=== PATIENT | male | born 1930 | race Caucasian/White ===

== ENCOUNTER 2017-04-28 08:05 | Inpatient (IN) | payer MEDICARE, BC, MEDICAID ==
[2017-04-28 08:37] VITALS: BP 122/86
--- NOTE | 2017-04-28 19:00 | Psychosocial Evaluation ---
DATE OF SERVICE: 04/28/2017 IDENTIFYING INFORMATION: The patient is 86 years old male. CHIEF COMPLAINT: No answer. HISTORY OF PRESENT ILLNESS: The patient was admitted on hold for danger to others. Apparently, the patient had thought that his was trying to harm him. He became paranoid. He was delusional. He has Parkinson's disease and seems he is demented. The patient himself was unable to tell me his age, he believes his son who is 57 when in reality after talking to the , she said he is 68. The patient has not been working. No substance abuse. He usually sleeps well, eats well. This is his first psychiatric hospitalization. PAST PSYCHIATRIC HISTORY: The patient has no prior psychiatric treatment, never tried to harm himself or anybody. MEDICAL HISTORY: Parkinson's was diagnosed 5 years ago. MEDICATIONS: He is on Sinemet. He has never been tried on any medication for Alzheimer. FAMILY AND SOCIAL HISTORY: The patient is . He has one son. 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 There is no family history of psychiatric disorder, his is 67 years of age. No history of abuse available. MENTAL STATUS EXAMINATION: The patient was appropriately dressed, not well groomed. He was alert. He did not tell me the date. He knew he was at [facility]. He was not a great historian. He was unable to tell me the date, though he was able to tell me his age. He was delusional. He believes his was cheating on him. His short-term memory is poor. He is not sure why he was there. His long-term term memory is poor. He can tell me his age or the age of his son. He denies any auditory or visual hallucination. He is not sure why he is here. He was apparently delusional about his . His insight and judgment is impaired. IMPRESSION: AXIS I: Psychosis, not otherwise specified, dementia. MEDICAL DIAGNOSES: Parkinson and hypertension. His assets, he is accepting treatment. Negative poor coping skills. INITIAL TREATMENT PLAN: We will be observing the patient. We will continue with his medication for Parkinson's. We will do group therapy, milieu therapy, individual therapy. ESTIMATED LENGTH OF STAY: 2-7 days. DISCHARGE CRITERIA: Decreasing psychosis, agitation, no longer threatening or delusional. After discharge, outpatient treatment. [facility]# [id number]
[2017-04-28] MEDS: Lactulose 10 Gm/15 mL 30mL UDC PO SCH (20:46)
[2017-04-29] MEDS: POLYETHYLENE GLYCOL 3350 17 GM PACK PO SCH (08:48)
[2017-04-29] MEDS ORDERED: Lactulose 10 Gm/15 mL 30mL UDC PO SCH (09:00)
[2017-04-29] MEDS: Lactulose 10 Gm/15 mL 30mL UDC PO SCH (20:52)
--- NOTE | 2017-04-29 21:10 | Progress Notes ---
DATE: 04/29/2017 Case was discussed with staff of the patient, reviewed records. The patient is confused. He tells me that he had an argument with his before he came here. He reports that apparently the family to collect the guns. I instructed Lizzie, the charge nurse, to make sure to call the family and tell them to get rid of the guns. The patient reported that he has got hold of it. The patient was admitted on a hold. The patient was afraid that his is going to shoot him. He locked himself ____ pulling a whistle to threatening to kill his . I am not sure of the police. The patient originally was brought by police. He believes that this is the 04/29/2017 and is unable to tell me the year. His current medications include Sinemet one tablet 4 times a day and he is on lactulose 10 grams daily, lactulose 10 grams at bedtime and Ativan 1 mg every 6 hours as needed and polyethylene glycol 17 grams daily. He is not smoking and he does not know if he got the flu vaccine this year or not and I did talk to his yesterday. She gave me detailed information about him. His is supposed to be making decisions for this patient and I will be initiating Exelon for this patient, Exelon patch to help with his dementia. I will start by Exelon 4.6 mg to be applied daily and will continue outpatient group therapy, milieu therapy, adjust medication as needed. JOB# [id number]
--- NOTE | 2017-04-29 21:21 | History & Physical ---
ADMIT DATE: 04/28/2017 HISTORY OF PRESENT ILLNESS: The patient is an 86-year-old male with long history of Parkinson's disease, hypertension, degenerative joint disease and dementia, admitted to [facility] under Dr. Jon's service. The patient denies any chest pain, shortness of breath, nausea, vomiting, fever, or chills. PAST MEDICAL HISTORY: Significant for hypertension, degenerative joint disease, Parkinson disease, and dementia. PAST SURGICAL HISTORY: No recent surgery. ALLERGIES: None. MEDICATIONS: Follow admission reconciliation. SOCIAL HISTORY: No smoking, alcohol, or drugs. FAMILY HISTORY: Noncontributory. REVIEW OF SYSTEMS: RENAL SYSTEM: No history of chronic renal disorder. CARDIOVASCULAR SYSTEM: He has history of hypertension. ENDOCRINE SYSTEM: No diabetes or thyroid problem. GASTROINTESTINAL SYSTEM: No upper or lower GI bleed. NEUROLOGICAL SYSTEM: He has history of Parkinson disease. GENITOURINARY SYSTEM: No dysuria or hematuria. PHYSICAL EXAMINATION: GENERAL: He is awake, alert, mildly confused. VITAL SIGNS: Temperature 98.9, heart rate is 69, and blood pressure 119/68. HEENT: Normocephalic. Pupils are reactive to light and accommodation. Sclerae are clear. NECK: Supple. Negative for lymphadenopathy, JVD, or bruit. CHEST: Air bilateral normal. No rhonchi or wheezing. HEART: S1 and S2 normal. No murmur or gallop rhythm. ABDOMEN: Soft. Bowel sounds positive. EXTREMITIES: No edema. NEUROLOGIC: Awake, alert, mildly confused. No focal motor or sensory deficits. Cranial nerves 2-12 are intact. ASSESSMENT: 1. Hypertension. 2. Parkinson's disease. 3. Degenerative joint disease. 4. Dementia. PLAN: The patient is admitted to the hospital under Dr. Jon's service. MEDICAL PROBLEMS ADDRESSED DURING HOSPITALIZATION: Dementia. MEDICAL PROBLEMS ADDRESSED AT DISCHARGE: Hypertension, degenerative joint disease. CBC and CMP for tomorrow. Aspirin 81 mg a day, metoprolol 25 twice a day. The patient is cleared for activity. Thank you, Dr. Jon, for asking me to see your patient. JOB# [id number]
[2017-04-30] MEDS: POLYETHYLENE GLYCOL 3350 17 GM PACK PO SCH (08:16)
[2017-04-30] MEDS: Aspirin 81mg Chewable Tab PO SCH (08:18)
[2017-04-30 08:51] LABS: % BASOPHILS 0.5 % (0.0-2.0); % EOSINOPHILS 1.4 % (0.0-5.0); % LYMPHOCYTES 33.6 % (20.0-50.0); % MONOCYTES 6.3 % (2.0-10.0); % NEUTROPHILS 58.2 % (40.0-80.0); EOSINOPHILE ABSOLUTE 0.1 Th/cmm (0.1-0.4); HEMATOCRIT 44.7 % (41.0-60); HEMOGLOBIN 15.2 gm/dL (12-16); LYMPHOCYTE ABSOLUTE 1.7 Th/cmm (1.5-3.0); MEAN CELL VOLUME 94.7 fl (80-99); MEAN CORPUSCULAR HEMOGLOBIN 32.1 pg (27.0-31.0); MEAN CORPUSCULAR HGB CONC 33.9 pg (28.0-36.0); MEAN PLATELET VOLUME 7.2 fl; MONOCYTE ABSOLUTE 0.3 Th/cmm (0.3-1.0); PLATELET COUNT 230 Th/cmm (150-400); RED BLOOD COUNT 4.72 Mil/cmm (3.80-5.80); WHITE BLOOD COUNT 5.1 Th/cmm (4.8-10.8)
[2017-04-30] MEDS ORDERED: Rivastigmine 4.6 mg/24 hr Tdm TD SCH (09:00)
[2017-04-30 09:11] LABS: ALB/GLOB RATIO 1.5 (1.0-1.8); ALBUMIN 4.3 gm/dL (4.2-5.5); ALKALINE PHOSPHATASE 39 U/L (34-104); ANION GAP 8.8 (7.0-16.0); BILIRUBIN,TOTAL 0.6 mg/dL (0.3-1.0); BUN - UREA NITROGEN 19 mg/dL (7-25); CALCIUM SERUM 9.5 mg/dL (8.6-10.3); CARBON DIOXIDE 25.3 mEq/L (21.0-31.0); CHLORIDE 104 mEq/L (98-107); CREATININE - SERUM 0.9 mg/dL (0.7-1.3); GLUCOSE 108 mg/dL (70-105); POTASSIUM SERUM 4.1 mEq/L (3.5-5.1); SGOT 22 U/L (13-39); SGPT/ALT 7 U/L (7-52); SODIUM SERUM 134 mEq/L (136-145); TOTAL PROTEIN,SERUM 7.2 gm/dL (6.0-8.3)
--- NOTE | 2017-04-30 13:06 | Internal Medicine Prog Note ---
Internal Medicine Subjective - Subjective Service Date: 04/30/17 Patient seen and examined:: with staff Patient is:: awake, verbal, in bed, confused Per staff patient has:: no adverse event Internal Medicine Objective - Results Result Diagrams: 04/30/17 08:35 04/30/17 08:35 Recent Labs: Laboratory Last Values WBC 5.1 Th/cmm (4.8-10.8) 04/30/17 08:35 RBC 4.72 Mil/cmm (3.80-5.80) 04/30/17 08:35 Hgb 15.2 gm/dL (12-16) 04/30/17 08:35 Hct 44.7 % (41.0-60) 04/30/17 08:35 MCV 94.7 fl (80-99) 04/30/17 08:35 MCH 32.1 pg (27.0-31.0) H 04/30/17 08:35 MCHC Differential 33.9 pg (28.0-36.0) 04/30/17 08:35 RDW 13.0 % (11.5-20.0) 04/30/17 08:35 Plt Count 230 Th/cmm (150-400) 04/30/17 08:35 MPV 7.2 fl 04/30/17 08:35 Neutrophils % 58.2 % (40.0-80.0) 04/30/17 08:35 Lymphocytes % 33.6 % (20.0-50.0) 04/30/17 08:35 Monocytes % 6.3 % (2.0-10.0) 04/30/17 08:35 Eosinophils % 1.4 % (0.0-5.0) 04/30/17 08:35 Basophils % 0.5 % (0.0-2.0) 04/30/17 08:35 Sodium 134 mEq/L (136-145) L 04/30/17 08:35 Potassium 4.1 mEq/L (3.5-5.1) 04/30/17 08:35 Chloride 104 mEq/L (98-107) 04/30/17 08:35 Carbon Dioxide 25.3 mEq/L (21.0-31.0) 04/30/17 08:35 Anion Gap 8.8 (7.0-16.0) 04/30/17 08:35 BUN 19 mg/dL (7-25) 04/30/17 08:35 Creatinine 0.9 mg/dL (0.7-1.3) 04/30/17 08:35 Est GFR ( Amer) TNP 04/30/17 08:35 Est GFR (Non-Af Amer) TNP 04/30/17 08:35 BUN/Creatinine Ratio 21.1 04/30/17 08:35 Glucose 108 mg/dL (70-105) H 04/30/17 08:35 Calcium 9.5 mg/dL (8.6-10.3) 04/30/17 08:35 Total Bilirubin 0.6 mg/dL (0.3-1.0) 04/30/17 08:35 AST 22 U/L (13-39) 04/30/17 08:35 ALT 7 U/L (7-52) 04/30/17 08:35 Alkaline Phosphatase 39 U/L (34-104) 04/30/17 08:35 Total Protein 7.2 gm/dL (6.0-8.3) 04/30/17 08:35 Albumin 4.3 gm/dL (4.2-5.5) 04/30/17 08:35 Globulin 2.9 gm/dL 04/30/17 08:35 Albumin/Globulin Ratio 1.5 (1.0-1.8) 04/30/17 08:35 - Physical Exam Vitals and I&O: Vital Signs Temp 98.0 F 04/29/17 20:00 Pulse 70 04/30/17 08:18 Resp 20 04/29/17 20:00 BP 161/82 04/30/17 08:18 Pulse Ox 100 04/29/17 20:00 Intake & Output 04/29/17 04/30/17 04/30/17 18:59 06:59 18:59 Intake Total 60 Balance 60 Intake: Oral 60 Other: # Voids 1 Stool Characteristics Formed Formed Soft Active Medications: Current Medications Acetaminophen (Tylenol) 650 mg PO Q4H PRN PRN Reason: Mild Pain/Headache/T above 101 Stop: 06/27/17 08:47 Aspirin (Aspirin Chewable) 81 mg PO DAILY [facility] Stop: 06/29/17 08:59 Last Admin: 04/30/17 08:18 Dose: 81 mg Carbidopa/Levodopa (Sinemet 25mg-100 Mg) 1 tab PO QID [facility] Stop: 06/27/17 12:59 Last Admin: 04/30/17 12:39 Dose: 1 tab Lactulose (Cephulac) 10 gm PO HS [facility] Stop: 06/27/17 20:59 Last Admin: 04/29/17 20:52 Dose: 10 gm Lorazepam (Ativan) 1 mg PO Q6H PRN; Protocol PRN Reason: Agitation Stop: 06/27/17 08:47 Metoprolol Tartrate (Lopressor) 25 mg PO BID [facility] Stop: 06/29/17 08:59 Last Admin: 04/30/17 08:18 Dose: 25 mg Polyethylene Glycol (Miralax) 17 gm PO DAILY [facility] Stop: 06/28/17 08:59 Last Admin: 04/30/17 08:16 Dose: Not Given Rivastigmine Tartrate (Exelon) 1.5 mg PO BIDWM [facility] Stop: 06/28/17 17:59 Last Admin: 04/30/17 08:18 Dose: 1.5 mg General: demented Internal Medicine Assmt/Plan - Assessment Assessment: 1.PARKINSONS DISEASE. 2.DJD. 3.HTN. 4.DEMENTIA. - Plan Plan: CONTINUE ON CURRENT MEDICATION AND DIET
[2017-04-30] MEDS: Lactulose 10 Gm/15 mL 30mL UDC PO SCH (21:15)
--- NOTE | 2017-04-30 23:45 | Progress Notes ---
DATE: 04/30/2017 Case was discussed with staff of the patient and reviewed records. The patient has a CBC with high MCH at 32.1. His chemistry panel showed low sodium at 134 with high blood sugar of 108, the rest is within normal range. I initiated Exelon on him 1.5 mg twice a day. I talked to his yesterday and today and I asked her about the guns that they own and she said they were all taken by the police and she said the one they found meaning that there may be some that they could not find and I discussed with her the importance of making sure that she search her house before the patient show up there to be sure just in case. She said she has arranged for 24-hour caregivers for the patient when he is ready. The patient continues to be confused, unpredictable, impulsive, and paranoid. I did add Exelon for him. No side effects. No nausea. I will continue outpatient group therapy, milieu therapy, adjust the medication as needed. I would like to add MRSA was negative. JOB# [id number]
[2017-05-01] MEDS: POLYETHYLENE GLYCOL 3350 17 GM PACK PO SCH (08:23)
[2017-05-01] MEDS: Aspirin 81mg Chewable Tab PO SCH (08:31)
--- NOTE | 2017-05-01 16:03 | General Progress Note ---
Subjective - Review of Systems Service Date: 05/01/17 Subjective: awake and ambulatory confused no distress Objective - Results Result Diagrams: 04/30/17 08:35 04/30/17 08:35 Recent Labs: Laboratory Last Values WBC 5.1 Th/cmm (4.8-10.8) 04/30/17 08:35 RBC 4.72 Mil/cmm (3.80-5.80) 04/30/17 08:35 Hgb 15.2 gm/dL (12-16) 04/30/17 08:35 Hct 44.7 % (41.0-60) 04/30/17 08:35 MCV 94.7 fl (80-99) 04/30/17 08:35 MCH 32.1 pg (27.0-31.0) H 04/30/17 08:35 MCHC Differential 33.9 pg (28.0-36.0) 04/30/17 08:35 RDW 13.0 % (11.5-20.0) 04/30/17 08:35 Plt Count 230 Th/cmm (150-400) 04/30/17 08:35 MPV 7.2 fl 04/30/17 08:35 Neutrophils % 58.2 % (40.0-80.0) 04/30/17 08:35 Lymphocytes % 33.6 % (20.0-50.0) 04/30/17 08:35 Monocytes % 6.3 % (2.0-10.0) 04/30/17 08:35 Eosinophils % 1.4 % (0.0-5.0) 04/30/17 08:35 Basophils % 0.5 % (0.0-2.0) 04/30/17 08:35 Sodium 134 mEq/L (136-145) L 04/30/17 08:35 Potassium 4.1 mEq/L (3.5-5.1) 04/30/17 08:35 Chloride 104 mEq/L (98-107) 04/30/17 08:35 Carbon Dioxide 25.3 mEq/L (21.0-31.0) 04/30/17 08:35 Anion Gap 8.8 (7.0-16.0) 04/30/17 08:35 BUN 19 mg/dL (7-25) 04/30/17 08:35 Creatinine 0.9 mg/dL (0.7-1.3) 04/30/17 08:35 Est GFR ( Amer) TNP 04/30/17 08:35 Est GFR (Non-Af Amer) TNP 04/30/17 08:35 BUN/Creatinine Ratio 21.1 04/30/17 08:35 Glucose 108 mg/dL (70-105) H 04/30/17 08:35 Calcium 9.5 mg/dL (8.6-10.3) 04/30/17 08:35 Total Bilirubin 0.6 mg/dL (0.3-1.0) 04/30/17 08:35 AST 22 U/L (13-39) 04/30/17 08:35 ALT 7 U/L (7-52) 04/30/17 08:35 Alkaline Phosphatase 39 U/L (34-104) 04/30/17 08:35 Total Protein 7.2 gm/dL (6.0-8.3) 04/30/17 08:35 Albumin 4.3 gm/dL (4.2-5.5) 04/30/17 08:35 Globulin 2.9 gm/dL 04/30/17 08:35 Albumin/Globulin Ratio 1.5 (1.0-1.8) 04/30/17 08:35 - Physical Exam Vitals and I&O: Vital Signs Temp 96.6 F 04/30/17 08:00 Pulse 60 05/01/17 08:28 Resp 20 04/30/17 08:00 BP 104/63 05/01/17 08:28 Pulse Ox 94 04/30/17 08:00 Intake & Output 04/30/17 05/01/17 05/01/17 18:59 06:59 18:59 Intake Total 1000 Output Total 2 Balance 998 Intake: Oral 1000 Output: Urine 2 Other: # Bowel Movements 1 Stool Characteristics Soft Soft Soft Active Medications: Current Medications Acetaminophen (Tylenol) 650 mg PO Q4H PRN PRN Reason: Mild Pain/Headache/T above 101 Stop: 06/27/17 08:47 Aspirin (Aspirin Chewable) 81 mg PO DAILY [facility] Stop: 06/29/17 08:59 Last Admin: 05/01/17 08:31 Dose: 81 mg Carbidopa/Levodopa (Sinemet 25mg-100 Mg) 1 tab PO QID [facility] Stop: 06/27/17 12:59 Last Admin: 05/01/17 12:13 Dose: 1 tab Lactulose (Cephulac) 10 gm PO HS [facility] Stop: 06/27/17 20:59 Last Admin: 04/30/17 21:15 Dose: 10 gm Lorazepam (Ativan) 1 mg PO Q6H PRN; Protocol PRN Reason: Agitation Stop: 06/27/17 08:47 Metoprolol Tartrate (Lopressor) 25 mg PO BID [facility] Stop: 06/29/17 08:59 Last Admin: 05/01/17 08:28 Dose: Not Given Polyethylene Glycol (Miralax) 17 gm PO DAILY [facility] Stop: 06/28/17 08:59 Last Admin: 05/01/17 08:23 Dose: Not Given Rivastigmine Tartrate (Exelon) 1.5 mg PO BIDWM [facility] Stop: 06/28/17 17:59 Last Admin: 05/01/17 08:31 Dose: 1.5 mg General: No acute distress HEENT: Atraumatic, PERRLA Neck: Supple, JVD Cardiovascular: Regular rate, Normal S1, Normal S2 Lungs: Clear to auscultation Abdomen: Bowel sounds, Soft Extremities: Other (scattered ecchymosis in arms) Assessment/Plan - Assessment Assessment: 1.PARKINSONS DISEASE. 2.DJD. 3.HTN. 4.DEMENTIA - Plan Plan: cont current treatment
--- NOTE | 2017-05-01 20:17 | Progress Notes ---
DATE: 05/01/2017 Case was discussed with staff of the patient, reviewed records. The patient was confused last night. He continues to be unpredictable and impulsive. His family is very supportive and they are here almost every day. He was wondering last night about, if where he is and where is his , but today he seems to be doing better on that. He has been compliant with the medication with no side effects, no sedation, no nausea and I am avoiding giving him any antipsychotic with his Parkinson symptoms and he is sleeping well, he is eating better. His and son were at bedside, very supportive, discussed plan of care and 24-hour caregivers as they are going to be coming to see him and we will continue to work with the patient in group therapy, milieu therapy and adjust medication as needed. JOB# [id number]
[2017-05-01] MEDS: Lactulose 10 Gm/15 mL 30mL UDC PO SCH (21:12)
[2017-05-02] MEDS: Aspirin 81mg Chewable Tab PO SCH (09:10)
[2017-05-02] MEDS: POLYETHYLENE GLYCOL 3350 17 GM PACK PO SCH (09:11)
--- NOTE | 2017-05-02 14:16 | General Progress Note ---
Subjective - Review of Systems Service Date: 05/02/17 Subjective: awake and ambulatory confused no distress Objective - Results Result Diagrams: 04/30/17 08:35 04/30/17 08:35 Recent Labs: Laboratory Last Values WBC 5.1 Th/cmm (4.8-10.8) 04/30/17 08:35 RBC 4.72 Mil/cmm (3.80-5.80) 04/30/17 08:35 Hgb 15.2 gm/dL (12-16) 04/30/17 08:35 Hct 44.7 % (41.0-60) 04/30/17 08:35 MCV 94.7 fl (80-99) 04/30/17 08:35 MCH 32.1 pg (27.0-31.0) H 04/30/17 08:35 MCHC Differential 33.9 pg (28.0-36.0) 04/30/17 08:35 RDW 13.0 % (11.5-20.0) 04/30/17 08:35 Plt Count 230 Th/cmm (150-400) 04/30/17 08:35 MPV 7.2 fl 04/30/17 08:35 Neutrophils % 58.2 % (40.0-80.0) 04/30/17 08:35 Lymphocytes % 33.6 % (20.0-50.0) 04/30/17 08:35 Monocytes % 6.3 % (2.0-10.0) 04/30/17 08:35 Eosinophils % 1.4 % (0.0-5.0) 04/30/17 08:35 Basophils % 0.5 % (0.0-2.0) 04/30/17 08:35 Sodium 134 mEq/L (136-145) L 04/30/17 08:35 Potassium 4.1 mEq/L (3.5-5.1) 04/30/17 08:35 Chloride 104 mEq/L (98-107) 04/30/17 08:35 Carbon Dioxide 25.3 mEq/L (21.0-31.0) 04/30/17 08:35 Anion Gap 8.8 (7.0-16.0) 04/30/17 08:35 BUN 19 mg/dL (7-25) 04/30/17 08:35 Creatinine 0.9 mg/dL (0.7-1.3) 04/30/17 08:35 Est GFR ( Amer) TNP 04/30/17 08:35 Est GFR (Non-Af Amer) TNP 04/30/17 08:35 BUN/Creatinine Ratio 21.1 04/30/17 08:35 Glucose 108 mg/dL (70-105) H 04/30/17 08:35 Calcium 9.5 mg/dL (8.6-10.3) 04/30/17 08:35 Total Bilirubin 0.6 mg/dL (0.3-1.0) 04/30/17 08:35 AST 22 U/L (13-39) 04/30/17 08:35 ALT 7 U/L (7-52) 04/30/17 08:35 Alkaline Phosphatase 39 U/L (34-104) 04/30/17 08:35 Total Protein 7.2 gm/dL (6.0-8.3) 04/30/17 08:35 Albumin 4.3 gm/dL (4.2-5.5) 04/30/17 08:35 Globulin 2.9 gm/dL 04/30/17 08:35 Albumin/Globulin Ratio 1.5 (1.0-1.8) 04/30/17 08:35 - Physical Exam Vitals and I&O: Vital Signs Temp 98.2 F 05/01/17 20:00 Pulse 57 05/02/17 09:11 Resp 18 05/01/17 20:00 BP 160/79 05/02/17 09:11 Pulse Ox 96 05/01/17 20:00 Intake & Output 05/01/17 05/02/17 05/02/17 18:59 06:59 18:59 Intake Total 1000 120 Output Total 2 3 Balance 998 117 Intake: Oral 1000 120 Output: Urine 2 3 Other: Stool Characteristics Soft Active Medications: Current Medications Acetaminophen (Tylenol) 650 mg PO Q4H PRN PRN Reason: Mild Pain/Headache/T above 101 Stop: 06/27/17 08:47 Aspirin (Aspirin Chewable) 81 mg PO DAILY [facility] Stop: 06/29/17 08:59 Last Admin: 05/02/17 09:10 Dose: 81 mg Carbidopa/Levodopa (Sinemet 25mg-100 Mg) 1 tab PO QID [facility] Stop: 06/27/17 12:59 Last Admin: 05/02/17 14:03 Dose: 1 tab Lactulose (Cephulac) 10 gm PO HS [facility] Stop: 06/27/17 20:59 Last Admin: 05/01/17 21:12 Dose: Not Given Lorazepam (Ativan) 1 mg PO Q6H PRN; Protocol PRN Reason: Agitation Stop: 06/27/17 08:47 Last Admin: 05/02/17 00:57 Dose: 1 mg Metoprolol Tartrate (Lopressor) 25 mg PO BID [facility] Stop: 06/29/17 08:59 Last Admin: 05/02/17 09:11 Dose: 25 mg Polyethylene Glycol (Miralax) 17 gm PO DAILY [facility] Stop: 06/28/17 08:59 Last Admin: 05/02/17 09:11 Dose: 17 gm Rivastigmine Tartrate (Exelon) 1.5 mg PO BIDWM [facility] Stop: 06/28/17 17:59 Last Admin: 05/02/17 09:10 Dose: 1.5 mg General: No acute distress HEENT: Atraumatic, PERRLA Neck: Supple, JVD Cardiovascular: Regular rate, Normal S1, Normal S2 Lungs: Clear to auscultation Abdomen: Bowel sounds, Soft Extremities: Other (scattered ecchymosis in arms) Assessment/Plan - Assessment Assessment: 1.PARKINSONS DISEASE. 2.DJD. 3.HTN. 4.DEMENTIA - Plan Plan: cont current treatment
--- NOTE | 2017-05-02 18:41 | Progress Notes ---
DATE: 05/02/2017 Case was discussed with staff of the patient, reviewed records. The patient continues to be confused, demented, continues to have poor insight, unable to make safe plan for self-care. He gets easily paranoid. He is compliant with the medication with no side effects. No nausea, no vomiting and his is working on getting him caregivers to make sure he stays home, so he does not go to a nursing facility. No side effects with the current medication. We will continue to work with the patient in group therapy, milieu therapy, and adjust the medication as needed. JOB# [id number]
[2017-05-02] MEDS: Lactulose 10 Gm/15 mL 30mL UDC PO SCH (20:26)
[2017-05-03] MEDS: Aspirin 81mg Chewable Tab PO SCH (09:46)
[2017-05-03] MEDS: POLYETHYLENE GLYCOL 3350 17 GM PACK PO SCH (09:46)
--- NOTE | 2017-05-03 18:49 | Internal Medicine Prog Note ---
Internal Medicine Subjective - Subjective Service Date: 05/03/17 Patient seen and examined:: with staff Patient is:: awake, verbal, in bed, confused Per staff patient has:: no adverse event Internal Medicine Objective - Results Result Diagrams: 04/30/17 08:35 04/30/17 08:35 Recent Labs: Laboratory Last Values WBC 5.1 Th/cmm (4.8-10.8) 04/30/17 08:35 RBC 4.72 Mil/cmm (3.80-5.80) 04/30/17 08:35 Hgb 15.2 gm/dL (12-16) 04/30/17 08:35 Hct 44.7 % (41.0-60) 04/30/17 08:35 MCV 94.7 fl (80-99) 04/30/17 08:35 MCH 32.1 pg (27.0-31.0) H 04/30/17 08:35 MCHC Differential 33.9 pg (28.0-36.0) 04/30/17 08:35 RDW 13.0 % (11.5-20.0) 04/30/17 08:35 Plt Count 230 Th/cmm (150-400) 04/30/17 08:35 MPV 7.2 fl 04/30/17 08:35 Neutrophils % 58.2 % (40.0-80.0) 04/30/17 08:35 Lymphocytes % 33.6 % (20.0-50.0) 04/30/17 08:35 Monocytes % 6.3 % (2.0-10.0) 04/30/17 08:35 Eosinophils % 1.4 % (0.0-5.0) 04/30/17 08:35 Basophils % 0.5 % (0.0-2.0) 04/30/17 08:35 Sodium 134 mEq/L (136-145) L 04/30/17 08:35 Potassium 4.1 mEq/L (3.5-5.1) 04/30/17 08:35 Chloride 104 mEq/L (98-107) 04/30/17 08:35 Carbon Dioxide 25.3 mEq/L (21.0-31.0) 04/30/17 08:35 Anion Gap 8.8 (7.0-16.0) 04/30/17 08:35 BUN 19 mg/dL (7-25) 04/30/17 08:35 Creatinine 0.9 mg/dL (0.7-1.3) 04/30/17 08:35 Est GFR ( Amer) TNP 04/30/17 08:35 Est GFR (Non-Af Amer) TNP 04/30/17 08:35 BUN/Creatinine Ratio 21.1 04/30/17 08:35 Glucose 108 mg/dL (70-105) H 04/30/17 08:35 Calcium 9.5 mg/dL (8.6-10.3) 04/30/17 08:35 Total Bilirubin 0.6 mg/dL (0.3-1.0) 04/30/17 08:35 AST 22 U/L (13-39) 04/30/17 08:35 ALT 7 U/L (7-52) 04/30/17 08:35 Alkaline Phosphatase 39 U/L (34-104) 04/30/17 08:35 Total Protein 7.2 gm/dL (6.0-8.3) 04/30/17 08:35 Albumin 4.3 gm/dL (4.2-5.5) 04/30/17 08:35 Globulin 2.9 gm/dL 04/30/17 08:35 Albumin/Globulin Ratio 1.5 (1.0-1.8) 04/30/17 08:35 - Physical Exam Vitals and I&O: Vital Signs Temp 97.8 F 05/03/17 16:36 Pulse 74 05/03/17 17:12 Resp 20 05/03/17 16:36 BP 138/75 05/03/17 17:12 Pulse Ox 96 05/03/17 16:36 Intake & Output 05/02/17 05/03/17 05/03/17 18:59 06:59 18:59 Other: Stool Characteristics Soft Soft Soft Active Medications: Current Medications Acetaminophen (Tylenol) 650 mg PO Q4H PRN PRN Reason: Mild Pain/Headache/T above 101 Stop: 06/27/17 08:47 Aspirin (Aspirin Chewable) 81 mg PO DAILY [facility] Stop: 06/29/17 08:59 Last Admin: 05/03/17 09:46 Dose: 81 mg Carbidopa/Levodopa (Sinemet 25mg-100 Mg) 1 tab PO QID [facility] Stop: 06/27/17 12:59 Last Admin: 05/03/17 17:11 Dose: 1 tab Lactulose (Cephulac) 10 gm PO HS [facility] Stop: 06/27/17 20:59 Last Admin: 05/02/17 20:26 Dose: 10 gm Lorazepam (Ativan) 1 mg PO Q6H PRN; Protocol PRN Reason: Agitation Stop: 06/27/17 08:47 Last Admin: 05/02/17 00:57 Dose: 1 mg Metoprolol Tartrate (Lopressor) 25 mg PO BID [facility] Stop: 06/29/17 08:59 Last Admin: 05/03/17 17:12 Dose: 25 mg Polyethylene Glycol (Miralax) 17 gm PO DAILY [facility] Stop: 06/28/17 08:59 Last Admin: 05/03/17 09:46 Dose: 17 gm Rivastigmine Tartrate (Exelon) 1.5 mg PO BIDWM [facility] Stop: 06/28/17 17:59 Last Admin: 05/03/17 08:22 Dose: 1.5 mg General: demented Internal Medicine Assmt/Plan - Assessment Assessment: 1.PARKINSONS DISEASE. 2.DJD. 3.HTN. 4.DEMENTIA. - Plan Plan: CONTINUE ON CURRENT MEDICATION AND DIET
[2017-05-03] MEDS: Lactulose 10 Gm/15 mL 30mL UDC PO SCH (20:54)
--- NOTE | 2017-05-03 21:53 | Progress Notes ---
DATE: 05/03/2017 Case was discussed with staff of the patient, reviewed records. The patient seems to be more stable. He is sleeping better, eating better. He is compliant with the medication with no side effects, no sedation, no nausea. He is on Exelon. He has Parkinson's disease. So, I will be talking to his regarding discharge plan and his being for 24-hour care and if that is possible and if he continues to show progress, I do have plans to discharge him as he has a 24-hour care. He does have lab work showing negative MRSA and the patient's also brought his advanced directives and we will continue to work with the patient in group therapy, milieu therapy, adjust medication as needed. JOB# [id number]
[2017-05-04] MEDS: POLYETHYLENE GLYCOL 3350 17 GM PACK PO SCH (09:33)
[2017-05-04] MEDS: Aspirin 81mg Chewable Tab PO SCH (09:34)
--- NOTE | 2017-05-04 19:25 | Internal Medicine Prog Note ---
Internal Medicine Subjective - Subjective Service Date: 05/04/17 Patient seen and examined:: with staff (HE IS DOING BETTER), without staff Patient is:: awake, verbal, in bed, confused Per staff patient has:: no adverse event Internal Medicine Objective - Results Result Diagrams: 04/30/17 08:35 04/30/17 08:35 Recent Labs: Laboratory Last Values WBC 5.1 Th/cmm (4.8-10.8) 04/30/17 08:35 RBC 4.72 Mil/cmm (3.80-5.80) 04/30/17 08:35 Hgb 15.2 gm/dL (12-16) 04/30/17 08:35 Hct 44.7 % (41.0-60) 04/30/17 08:35 MCV 94.7 fl (80-99) 04/30/17 08:35 MCH 32.1 pg (27.0-31.0) H 04/30/17 08:35 MCHC Differential 33.9 pg (28.0-36.0) 04/30/17 08:35 RDW 13.0 % (11.5-20.0) 04/30/17 08:35 Plt Count 230 Th/cmm (150-400) 04/30/17 08:35 MPV 7.2 fl 04/30/17 08:35 Neutrophils % 58.2 % (40.0-80.0) 04/30/17 08:35 Lymphocytes % 33.6 % (20.0-50.0) 04/30/17 08:35 Monocytes % 6.3 % (2.0-10.0) 04/30/17 08:35 Eosinophils % 1.4 % (0.0-5.0) 04/30/17 08:35 Basophils % 0.5 % (0.0-2.0) 04/30/17 08:35 Sodium 134 mEq/L (136-145) L 04/30/17 08:35 Potassium 4.1 mEq/L (3.5-5.1) 04/30/17 08:35 Chloride 104 mEq/L (98-107) 04/30/17 08:35 Carbon Dioxide 25.3 mEq/L (21.0-31.0) 04/30/17 08:35 Anion Gap 8.8 (7.0-16.0) 04/30/17 08:35 BUN 19 mg/dL (7-25) 04/30/17 08:35 Creatinine 0.9 mg/dL (0.7-1.3) 04/30/17 08:35 Est GFR ( Amer) TNP 04/30/17 08:35 Est GFR (Non-Af Amer) TNP 04/30/17 08:35 BUN/Creatinine Ratio 21.1 04/30/17 08:35 Glucose 108 mg/dL (70-105) H 04/30/17 08:35 Calcium 9.5 mg/dL (8.6-10.3) 04/30/17 08:35 Total Bilirubin 0.6 mg/dL (0.3-1.0) 04/30/17 08:35 AST 22 U/L (13-39) 04/30/17 08:35 ALT 7 U/L (7-52) 04/30/17 08:35 Alkaline Phosphatase 39 U/L (34-104) 04/30/17 08:35 Total Protein 7.2 gm/dL (6.0-8.3) 04/30/17 08:35 Albumin 4.3 gm/dL (4.2-5.5) 04/30/17 08:35 Globulin 2.9 gm/dL 04/30/17 08:35 Albumin/Globulin Ratio 1.5 (1.0-1.8) 04/30/17 08:35 - Physical Exam Vitals and I&O: Vital Signs Temp 97.8 F 05/03/17 16:36 Pulse 81 05/04/17 17:21 Resp 20 05/04/17 17:18 BP 121/64 05/04/17 17:21 Pulse Ox 97 05/04/17 17:18 Intake & Output 05/04/17 05/04/17 05/05/17 06:59 18:59 06:59 Other: Stool Characteristics Soft Soft Active Medications: Current Medications Acetaminophen (Tylenol) 650 mg PO Q4H PRN PRN Reason: Mild Pain/Headache/T above 101 Stop: 06/27/17 08:47 Aspirin (Aspirin Chewable) 81 mg PO DAILY [facility] Stop: 06/29/17 08:59 Last Admin: 05/04/17 09:34 Dose: 81 mg Carbidopa/Levodopa (Sinemet 25mg-100 Mg) 1 tab PO QID [facility] Stop: 06/27/17 12:59 Last Admin: 05/04/17 17:22 Dose: 1 tab Lactulose (Cephulac) 10 gm PO HS [facility] Stop: 06/27/17 20:59 Last Admin: 05/03/17 20:54 Dose: 10 gm Lorazepam (Ativan) 1 mg PO Q6H PRN; Protocol PRN Reason: Agitation Stop: 06/27/17 08:47 Last Admin: 05/02/17 00:57 Dose: 1 mg Metoprolol Tartrate (Lopressor) 25 mg PO BID [facility] Stop: 06/29/17 08:59 Last Admin: 05/04/17 17:21 Dose: 25 mg Polyethylene Glycol (Miralax) 17 gm PO DAILY [facility] Stop: 06/28/17 08:59 Last Admin: 05/04/17 09:33 Dose: 17 gm Rivastigmine Tartrate (Exelon) 1.5 mg PO BIDWM [facility] Stop: 06/28/17 17:59 Last Admin: 05/04/17 09:40 Dose: Not Given General: demented Internal Medicine Assmt/Plan - Assessment Assessment: 1.PARKINSONS DISEASE. 2.DJD. 3.HTN. 4.DEMENTIA. - Plan Plan: CONTINUE ON CURRENT MEDICATION AND DIET
--- NOTE | 2017-05-04 19:43 | Progress Notes ---
DATE: 05/04/2017 Case was discussed with staff of the patient and reviewed records. I also talked to his and son who happened to be there. They went to see the perioperative manager of the hospital to complain that I have not been talking to them, though I have been talking to his almost on a daily basis except for yester and Wednesday, they were not there. I did leave her a message yesterday. The patient's was planning to have the patient go and live at home and she has 24-hour caregivers. I explained to her again that he is on Exelon and that is the only medication. Also I would like to add that the did tell me that he did get the flu shot recently, was able to remember that and so far the seems to have changed her mind about taking him home with 24-hour caregiver and that she will take him to a residential and I called Oanh, the medical case worker, to work with the on discharge plan and finding him a nursing facility and so far, the patient has been compliant with the medication, no side effects. Continues to be demented, confused, but there is no acting-out behavior. We will be working on discharge plans soon to have him go to a facility that takes care of demented people. His lab work shows MCH to be high, the rest within normal range. Sodium level is low. Blood sugar is high and the rest within normal range. I will continue to work with the patient in group therapy and milieu therapy and adjust medications. JOB# [id number]
[2017-05-04] MEDS: Lactulose 10 Gm/15 mL 30mL UDC PO SCH (21:42)
[2017-05-05] MEDS: POLYETHYLENE GLYCOL 3350 17 GM PACK PO SCH (08:33)
[2017-05-05] MEDS: Aspirin 81mg Chewable Tab PO SCH (08:36)
--- NOTE | 2017-05-05 14:28 | Progress Notes ---
DATE: 05/05/2017 Case was discussed with staff of the patient, reviewed records. The patient continues to be demented, confused. His family changed their mind about taking him home. They want him to go to a nursing facility and the porter sample case is working on years to make that decision. The patient continues to be confused; however, he can feed himself. He is sleeping better, eating better. He is compliant to the medication with no side effects, no sedation, no nausea. He is on Exelon 1.5 mg twice a day. His lab work showed CBC with low hematocrit, MCH at 32.1. The rest within normal range. Chemistry panel with low serum sodium and high blood sugar, the rest within normal range. We will continue to work with the patient in group therapy, milieu therapy, and adjust medications as needed. JOB# [id number]
--- NOTE | 2017-05-05 20:12 | Internal Medicine Prog Note ---
Internal Medicine Subjective - Subjective Service Date: 05/05/17 Patient seen and examined:: with staff Patient is:: awake, verbal, in bed, confused Per staff patient has:: no adverse event Internal Medicine Objective - Results Result Diagrams: 04/30/17 08:35 04/30/17 08:35 Recent Labs: Laboratory Last Values WBC 5.1 Th/cmm (4.8-10.8) 04/30/17 08:35 RBC 4.72 Mil/cmm (3.80-5.80) 04/30/17 08:35 Hgb 15.2 gm/dL (12-16) 04/30/17 08:35 Hct 44.7 % (41.0-60) 04/30/17 08:35 MCV 94.7 fl (80-99) 04/30/17 08:35 MCH 32.1 pg (27.0-31.0) H 04/30/17 08:35 MCHC Differential 33.9 pg (28.0-36.0) 04/30/17 08:35 RDW 13.0 % (11.5-20.0) 04/30/17 08:35 Plt Count 230 Th/cmm (150-400) 04/30/17 08:35 MPV 7.2 fl 04/30/17 08:35 Neutrophils % 58.2 % (40.0-80.0) 04/30/17 08:35 Lymphocytes % 33.6 % (20.0-50.0) 04/30/17 08:35 Monocytes % 6.3 % (2.0-10.0) 04/30/17 08:35 Eosinophils % 1.4 % (0.0-5.0) 04/30/17 08:35 Basophils % 0.5 % (0.0-2.0) 04/30/17 08:35 Sodium 134 mEq/L (136-145) L 04/30/17 08:35 Potassium 4.1 mEq/L (3.5-5.1) 04/30/17 08:35 Chloride 104 mEq/L (98-107) 04/30/17 08:35 Carbon Dioxide 25.3 mEq/L (21.0-31.0) 04/30/17 08:35 Anion Gap 8.8 (7.0-16.0) 04/30/17 08:35 BUN 19 mg/dL (7-25) 04/30/17 08:35 Creatinine 0.9 mg/dL (0.7-1.3) 04/30/17 08:35 Est GFR ( Amer) TNP 04/30/17 08:35 Est GFR (Non-Af Amer) TNP 04/30/17 08:35 BUN/Creatinine Ratio 21.1 04/30/17 08:35 Glucose 108 mg/dL (70-105) H 04/30/17 08:35 Calcium 9.5 mg/dL (8.6-10.3) 04/30/17 08:35 Total Bilirubin 0.6 mg/dL (0.3-1.0) 04/30/17 08:35 AST 22 U/L (13-39) 04/30/17 08:35 ALT 7 U/L (7-52) 04/30/17 08:35 Alkaline Phosphatase 39 U/L (34-104) 04/30/17 08:35 Total Protein 7.2 gm/dL (6.0-8.3) 04/30/17 08:35 Albumin 4.3 gm/dL (4.2-5.5) 04/30/17 08:35 Globulin 2.9 gm/dL 04/30/17 08:35 Albumin/Globulin Ratio 1.5 (1.0-1.8) 04/30/17 08:35 - Physical Exam Vitals and I&O: Vital Signs Temp 98.1 F 05/04/17 20:23 Pulse 75 05/05/17 16:16 Resp 20 05/04/17 20:23 BP 160/80 05/05/17 16:16 Pulse Ox 96 05/04/17 20:23 Intake & Output 05/05/17 05/05/17 05/06/17 06:59 18:59 06:59 Intake Total 250 Balance 250 Intake: Oral 250 Other: # Voids 2 Active Medications: Current Medications Acetaminophen (Tylenol) 650 mg PO Q4H PRN PRN Reason: Mild Pain/Headache/T above 101 Stop: 06/27/17 08:47 Aspirin (Aspirin Chewable) 81 mg PO DAILY [facility] Stop: 06/29/17 08:59 Last Admin: 05/05/17 08:36 Dose: 81 mg Carbidopa/Levodopa (Sinemet 25mg-100 Mg) 1 tab PO QID [facility] Stop: 06/27/17 12:59 Last Admin: 05/05/17 16:15 Dose: 1 tab Lactulose (Cephulac) 10 gm PO HS [facility] Stop: 06/27/17 20:59 Last Admin: 05/04/17 21:42 Dose: 10 gm Lorazepam (Ativan) 1 mg PO Q6H PRN; Protocol PRN Reason: Agitation Stop: 06/27/17 08:47 Last Admin: 05/02/17 00:57 Dose: 1 mg Metoprolol Tartrate (Lopressor) 25 mg PO BID [facility] Stop: 06/29/17 08:59 Last Admin: 05/05/17 16:16 Dose: 25 mg Polyethylene Glycol (Miralax) 17 gm PO DAILY [facility] Stop: 06/28/17 08:59 Last Admin: 05/05/17 08:33 Dose: 17 gm Rivastigmine Tartrate (Exelon) 1.5 mg PO BIDWM [facility] Stop: 06/28/17 17:59 Last Admin: 05/05/17 18:56 Dose: 1.5 mg General: demented Internal Medicine Assmt/Plan - Assessment Assessment: 1.PARKINSONS DISEASE. 2.DJD. 3.HTN. 4.DEMENTIA. - Plan Plan: CONTINUE ON CURRENT MEDICATION AND DIET Nutritional Asmnt/Malnutr-PDOC - Dietary Evaluation Malnutrition Findings (Please click <Entered> for more info): Nutritional Asmnt/Malnutrition Start: 04/29/17 10: 15 Text: Status: Complete Freq: Document 05/05/17 14:08 TEOFILO (Rec: 05/05/17 14:09 MIGUEL [email or web address]) Nutritional Asmnt/Malnutrition Patient General Information Nutritional Screening Low Risk Diagnosis psychosis NOS Pertinent Medical Hx/Surgical Hx HTN, DJD, parkingson, dementia Subjective Information Pt seen sitting in [facility] at time of visit, working on lunch, family here. Pt stated he does not like the green beans, rice and meat on the tray. Current Diet Order/ Nutrition Support regular Pertinent Medications cephulac, miralax Pertinent Labs 04/30 Na 134, K 4.1, BUN 19, Cr 0.9, Glucose 108 Nutritional Hx/Data Height 1.85 m Height (Calculated Centimeters) 185.4 Current Weight (lbs) 76.839 kg Weight (Calculated Kilograms) 76.8 Weight (Calculated Grams) 65524.5 [place] Body Weight 184 % [place] Body Weight 92 Body Mass Index (BMI) 22.3 Weight Status Approriate GI Symptoms GI Symptoms None Last BM 04/30 Difficult in: None Skin Integrity/Comment: dryness, redness, flaking, bruise Current %PO Good (75-100%) Estimated Nutritional Goals BEE in Kcals: Using Current wt Calories/Kcals/Kg 25-30 Kcals Calculated 8440-3912 Protein: Using Current wt Protein g/k Protein Calculated 77 Fluid: ml 2441-9258 Nutritional Problem No current Nutrition Prob Problem N/A Malnutrition Alert Protein-Calorie Malnutrition N/A Is there a minimum of two criteria No selected? Query Text:Check all the applicable criteria. A minimum of two criteria are recommended for diagnosis of either severe or non-severe malnutrition. Intervention/Recommendation Comments 1. Continue with current diet as ordered. Notified [employer] dietary service manager and updated pt food preference 2. Monitor PO intake, wt, labs and skin integrity 3. F/U as low risk in 7 days, 05/12 Expected Outcomes/Goals Expected Outcomes/Goals 1. PO intake to meet at least 75% of nutritional needs. 2. Wt stability, skin to remain intact, labs to approach WNL.
[2017-05-05] MEDS: Lactulose 10 Gm/15 mL 30mL UDC PO SCH (21:30)
[2017-05-06] MEDS: POLYETHYLENE GLYCOL 3350 17 GM PACK PO SCH (09:38)
[2017-05-06] MEDS: Aspirin 81mg Chewable Tab PO SCH (09:38)
--- NOTE | 2017-05-06 18:36 | Internal Medicine Prog Note ---
Internal Medicine Subjective - Subjective Service Date: 05/06/17 Patient seen and examined:: with staff Patient is:: awake, verbal, in bed, confused Per staff patient has:: no adverse event Internal Medicine Objective - Results Result Diagrams: 04/30/17 08:35 04/30/17 08:35 Recent Labs: Laboratory Last Values WBC 5.1 Th/cmm (4.8-10.8) 04/30/17 08:35 RBC 4.72 Mil/cmm (3.80-5.80) 04/30/17 08:35 Hgb 15.2 gm/dL (12-16) 04/30/17 08:35 Hct 44.7 % (41.0-60) 04/30/17 08:35 MCV 94.7 fl (80-99) 04/30/17 08:35 MCH 32.1 pg (27.0-31.0) H 04/30/17 08:35 MCHC Differential 33.9 pg (28.0-36.0) 04/30/17 08:35 RDW 13.0 % (11.5-20.0) 04/30/17 08:35 Plt Count 230 Th/cmm (150-400) 04/30/17 08:35 MPV 7.2 fl 04/30/17 08:35 Neutrophils % 58.2 % (40.0-80.0) 04/30/17 08:35 Lymphocytes % 33.6 % (20.0-50.0) 04/30/17 08:35 Monocytes % 6.3 % (2.0-10.0) 04/30/17 08:35 Eosinophils % 1.4 % (0.0-5.0) 04/30/17 08:35 Basophils % 0.5 % (0.0-2.0) 04/30/17 08:35 Sodium 134 mEq/L (136-145) L 04/30/17 08:35 Potassium 4.1 mEq/L (3.5-5.1) 04/30/17 08:35 Chloride 104 mEq/L (98-107) 04/30/17 08:35 Carbon Dioxide 25.3 mEq/L (21.0-31.0) 04/30/17 08:35 Anion Gap 8.8 (7.0-16.0) 04/30/17 08:35 BUN 19 mg/dL (7-25) 04/30/17 08:35 Creatinine 0.9 mg/dL (0.7-1.3) 04/30/17 08:35 Est GFR ( Amer) TNP 04/30/17 08:35 Est GFR (Non-Af Amer) TNP 04/30/17 08:35 BUN/Creatinine Ratio 21.1 04/30/17 08:35 Glucose 108 mg/dL (70-105) H 04/30/17 08:35 Calcium 9.5 mg/dL (8.6-10.3) 04/30/17 08:35 Total Bilirubin 0.6 mg/dL (0.3-1.0) 04/30/17 08:35 AST 22 U/L (13-39) 04/30/17 08:35 ALT 7 U/L (7-52) 04/30/17 08:35 Alkaline Phosphatase 39 U/L (34-104) 04/30/17 08:35 Total Protein 7.2 gm/dL (6.0-8.3) 04/30/17 08:35 Albumin 4.3 gm/dL (4.2-5.5) 04/30/17 08:35 Globulin 2.9 gm/dL 04/30/17 08:35 Albumin/Globulin Ratio 1.5 (1.0-1.8) 04/30/17 08:35 - Physical Exam Vitals and I&O: Vital Signs Temp 98.6 F 05/06/17 14:00 Pulse 76 05/06/17 14:00 Resp 18 05/06/17 14:00 BP 118/69 05/06/17 14:00 Pulse Ox 97 05/06/17 14:00 Intake & Output 05/05/17 05/06/17 05/06/17 18:59 06:59 18:59 Intake Total 120 100 Balance 120 100 Intake: Oral 120 100 Other: # Voids 3 # Bowel Movements 1 Active Medications: Current Medications Acetaminophen (Tylenol) 650 mg PO Q4H PRN PRN Reason: Mild Pain/Headache/T above 101 Stop: 06/27/17 08:47 Aspirin (Aspirin Chewable) 81 mg PO DAILY [facility] Stop: 06/29/17 08:59 Last Admin: 05/06/17 09:38 Dose: Not Given Carbidopa/Levodopa (Sinemet 25mg-100 Mg) 1 tab PO QID [facility] Stop: 06/27/17 12:59 Last Admin: 05/06/17 18:13 Dose: Not Given Lactulose (Cephulac) 10 gm PO HS [facility] Stop: 06/27/17 20:59 Last Admin: 05/05/17 21:30 Dose: 10 gm Lorazepam (Ativan) 1 mg PO Q6H PRN; Protocol PRN Reason: Agitation Stop: 06/27/17 08:47 Last Admin: 05/02/17 00:57 Dose: 1 mg Metoprolol Tartrate (Lopressor) 25 mg PO BID [facility] Stop: 06/29/17 08:59 Last Admin: 05/06/17 18:13 Dose: Not Given Polyethylene Glycol (Miralax) 17 gm PO DAILY [facility] Stop: 06/28/17 08:59 Last Admin: 05/06/17 09:38 Dose: 17 gm Rivastigmine Tartrate (Exelon) 1.5 mg PO BIDWM [facility] Stop: 06/28/17 17:59 Last Admin: 05/06/17 18:13 Dose: Not Given General: demented Internal Medicine Assmt/Plan - Assessment Assessment: 1.PARKINSONS DISEASE. 2.DJD. 3.HTN. 4.DEMENTIA. - Plan Plan: CONTINUE ON CURRENT MEDICATION AND DIET Nutritional Asmnt/Malnutr-PDOC - Dietary Evaluation Malnutrition Findings (Please click <Entered> for more info): Nutritional Asmnt/Malnutrition Start: 04/29/17 10: 15 Text: Status: Complete Freq: Document 05/05/17 14:08 BATOOL (Rec: 05/05/17 14:09 [email or web address] Nutritional Asmnt/Malnutrition Patient General Information Nutritional Screening Low Risk Diagnosis psychosis NOS Pertinent Medical Hx/Surgical Hx HTN, DJD, parkingson, dementia Subjective Information Pt seen sitting in [facility] at time of visit, working on lunch, family here. Pt stated he does not like the green beans, rice and meat on the tray. Current Diet Order/ Nutrition Support regular Pertinent Medications cephulac, miralax Pertinent Labs 04/30 Na 134, K 4.1, BUN 19, Cr 0.9, Glucose 108 Nutritional Hx/Data Height 1.85 m Height (Calculated Centimeters) 185.4 Current Weight (lbs) 76.839 kg Weight (Calculated Kilograms) 76.8 Weight (Calculated Grams) 31286.5 [place] Body Weight 184 % [place] Body Weight 92 Body Mass Index (BMI) 22.3 Weight Status Approriate GI Symptoms GI Symptoms None Last BM 04/30 Difficult in: None Skin Integrity/Comment: dryness, redness, flaking, bruise Current %PO Good (75-100%) Estimated Nutritional Goals BEE in Kcals: Using Current wt Calories/Kcals/Kg 25-30 Kcals Calculated 6480-3702 Protein: Using Current wt Protein g/k Protein Calculated 77 Fluid: ml 2288-2188 Nutritional Problem No current Nutrition Prob Problem N/A Malnutrition Alert Protein-Calorie Malnutrition N/A Is there a minimum of two criteria No selected? Query Text:Check all the applicable criteria. A minimum of two criteria are recommended for diagnosis of either severe or non-severe malnutrition. Intervention/Recommendation Comments 1. Continue with current diet as ordered. Notified dietetic technician registered and updated pt food preference 2. Monitor PO intake, wt, labs and skin integrity 3. F/U as low risk in 7 days, 05/12 Expected Outcomes/Goals Expected Outcomes/Goals 1. PO intake to meet at least 75% of nutritional needs. 2. Wt stability, skin to remain intact, labs to approach WNL.
--- NOTE | 2017-05-06 23:21 | Progress Notes ---
DATE: 05/06/2017 Case was discussed with staff of the patient, though the apparently wants the patient to go to a SNF facility; however, apparently yesterday somebody have to help him with the bathroom and apparently, the got upset. She felt that the nurse handle him in a bad manner and he got upset and wanted to take the patient right away and I was told she is coming today to pick him up, so I talked to Oanh, the behavioral health case manager. She said he was interviewed by one place, they rejected him, the other place, they are full, so when the patient comes. She will talk to the about discharge plan and if she insists on taking him, we will discharge him against medical advice unless has a good plan for him to take care of him because obviously she change her mind about 24-hour care. No side effects with the medications and he is on Exelon 1.5 mg twice a day. No sedation noted. He is demented, confused, unable to present in a meaningful conversation or make safe plan for self-care, will continue patient in group therapy, milieu therapy, and adjust medications as needed. JOB# [id number]
--- NOTE | 2017-06-01 21:49 | Discharge Summary ---
DATE OF DISCHARGE: 05/06/2017 IDENTIFYING INFORMATION: The patient is an 86-year-old male. CHIEF COMPLAINT: No answer. HISTORY OF PRESENT ILLNESS: The patient was admitted on a hold for danger to others. The patient has felt that his was trying to harm him, became paranoid and delusional. He has Parkinson's disease and seems to be demented. He was unable to tell me his age. He believes his son was 57. His told me that his son is 68. The patient is not working. No substance abuse. He usually sleeps well, eats well. This is first psych hospitalization, most of the information was obtained from his , as I discussed today the first day he was there and almost every time she was there, she was there almost daily. The patient has no prior psychiatric treatment, never tried to harm himself, has Parkinson's disease that was diagnosed 5 years ago. He was on Sinemet, never tried on any medication for dementia. The patient is , has one son, who used to own his optic company that was international and that allowed him to travel a lot. There was no family psychiatric disorder. is 69 years of age. No history of abuse available. COURSE IN THE HOSPITAL: The patient was diagnosed with psychosis, NOS and dementia. He also has Parkinson and hypertension. After talking to the , examining the patient, I started the patient on Exelon patch; however, Exelon patch was not available in the store. So, we started him on Exelon 1.5 mg twice a day. The patient continued to be confused, demented, smoker; however, he was no longer acting paranoid or psychotic. I talked to his many times and his son, who started coming after the first day to be just with his father. The patient was continued with Sinemet dose. He was on aspirin, lactulose, metoprolol, and the at some point wanted to let him go. However, at that point, I was concerned about his sleep and did clear him because she seemed to have some memory issues as she claimed that I never talked to her when I talked to them all the time and she arranged for the patient to go to a nursing facility that the patient improved and he has a good discharge plan. I felt he could be discharged to a lesser level of care. He was seen by Dr. Don during this course who diagnosed him with hypertension, Parkinson's disease, degenerative joint disease. 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 MEDICAL DIAGNOSES: Parkinson's disease, hypertension. The patient will be going to a nursing facility with followup with the psychiatrist, primary care physician and a therapist. EXPECTED OUTCOME: Stable if the patient complies with the above. JOB# [id number]
== END 2017-05-06 19:00 | disposition home or self-care (01) | DRG 885 ==
LOC: GERO 08:05
PROVIDERS: ADMIT Psychiatry & Neurology Psychiatry; ATTEND Psychiatry & Neurology Psychiatry
DX: F29 Unspecified psychosis not due to a substance or known physiological condition (principal); G20 Parkinson's disease; F02.80 Dementia in other diseases classified elsewhere, unspecified severity, without behavioral disturbance, psychotic disturbance, mood disturbance, and anxiety; I10 Essential (primary) hypertension; M19.90 Unspecified osteoarthritis, unspecified site
CPT/HCPCS: 36415-UA; 80053-TC; 85025-TC; G0410; Z7610